=== PATIENT | female | born 1960 | race Caucasian/White ===

== ENCOUNTER 2017-11-26 08:39 | Inpatient (IN) | payer MEDICARE ==
[2017-11-26 09:30] LABS: Hematocrit 41 % (35-47); Hemoglobin 14.6 g/dl (12.0-16.0); Mean Corpuscular HGB Conc 36 g/dl (31-36); Mean Corpuscular Hemoglobin 40 pg (27-31); Mean Corpuscular Volume 113 fL (80-97); Platelet Count 61 10^3/ul (150-450); Red Blood Count 3.65 10^6/ul (4.00-5.40); Red Cell Distribution Width 14 % (10.5-15); White Blood Count 6.3 10^3/ul (3.5-10.8)
--- NOTE | 2017-11-26 09:37 | RAD ---
Indication: Syncope, palpitations, high blood pressure. Comparison: July 24, 1999 Technique: Upright AP 0920 hours Report: Elevated lung volumes. Mild rarefaction of upper lung zone interstitial markings. No focal pulmonary lesion, pleural effusion, pneumothorax. Negative for cardiomegaly. Prominence of the upper lung zone pulmonary arteries increased over the previous exam consistent with cephalization. IMPRESSION: #. Cephalization favoring mild pulmonary vascular congestion. #. Stigmata of chronic obstructive pulmonary disease.
[2017-11-26 09:50] LABS: ABS Basophils 0 10^3/ul (0-0.2); ABS Eosinophils 0 10^3/ul (0-0.6); ABS Lymphocytes 1.4 10^3/ul (1.0-4.8); ABS Monocytes 0.8 10^3/ul (0-0.8); ABS Neutrophils 4.2 10^3/ul (1.5-7.7); ABS Nucleated RBC 0 10^3/ul; Eosinophil % 0.2 % (0-6); Lymphocyte % 21.3 % (25-47); Nucleated Red Blood Cells % 0.2
[2017-11-26 09:51] LABS: EGFR Non-African American 60.1 (>60)
--- NOTE | 2017-11-26 10:47 | RAD ---
INDICATION: Vertigo COMPARISON: MRI brain February 01, 2013 TECHNIQUE: Noncontrast axial source images were acquired from the skull base to the vertex. FINDINGS: Ventricles/sulci: There is cortical atrophy with compensatory dilatation of the CSF spaces. Brain parenchyma: There is no acute focal parenchymal finding, evidence of intracranial mass, or intracranial mass effect. There are patchy areas of decreased attenuation in periventricular and subcortical locations bilaterally consistent with chronic microvascular ischemia. Intracranial hemorrhage:None. Extra-axial spaces: There are no abnormal extra axial fluid collections or evidence of extra-axial mass. Calvarium: There is no calvarial fracture or other calvarial abnormality. Scalp: There is no evidence of scalp or extracalvarial soft tissue abnormality. Paranasal sinuses/mastoid: The paranasal sinuses and mastoid air cells are clear. Other: None. IMPRESSION: Cortical atrophy with chronic microvascular ischemic change
[2017-11-26] MEDS: KCL 20 MEQ/100 ML IVPREMIX* 20 MEQ/100 ML BAG IV SCH ×4 (10:54→20:55)
[2017-11-26] MEDS ORDERED: NS 0.9% 1000 ML* 1,000 ML IV ONE (11:30)
[2017-11-26] MEDS ORDERED: Ondansetron INJ* 2 MG/ML VIAL IV PRN (11:31)
[2017-11-26] MEDS ORDERED: Albuterol 2.5 MG/3 ML NEB.SOL* (0.083%) INH SCH (12:00)
[2017-11-26] MEDS: Albuterol 2.5 MG/3 ML NEB.SOL* (0.083%) INH SCH ×3 (13:40→19:47)
[2017-11-26] MEDS ORDERED: NS 0.9% 1000 ML* 2,000 ML IV ONE (14:10)
[2017-11-26] MEDS: Nicotine PATCH 14 MG/24 HR* PATCH TRANSDERM SCH (14:46)
--- NOTE | 2017-11-26 15:49 | CONS ---
CC: Dr. Valle GASTROENTEROLOGY CONSULTATION DATE OF CONSULTATION: 11/26/2017. REQUESTING PHYSICIAN: Dr. Clifton. REASON FOR CONSULT: Increased LFT's. HISTORY OF PRESENT ILLNESS: Ms. Rodgers is a 57-year-old female who used to be a patient of Dr. Metcalf . He had treated her for hepatitis C back in 2014 successfully with Jose. She now is admitted fr om the emergency room after experiencing syncope. In the emergency room, blood work revealed increas ed liver function test. The patient states that she does drink alcohol on an every other day basis, between two and five beers per day. She additionally had at least half a bottle of jagermeister on . It was an approximate 750 ml bottle. She denies any for alcoholism. She denies an y new medications, other than a muscle relaxer prescribed by her MS doctor. She denies any possibili ty of reinfection with hepatitis C. she denies any recent IV drug use. She has noted that the white s of her eyes have become yellow over the past few days. Some nausea, no vomiting. She denies any T ylenol use. She does have a known history of gallstones. PAST MEDICAL HISTORY: Please see the HPI. PAST SURGICAL HISTORY: None. ALLERGIES: AMBIEN, COPAXONE, CELEXA, ERYTHROMYCIN, AND PENICILLIN. FAMILY HISTORY: Noncontributory. REVIEW OF SYSTEMS: Twelve systems were reviewed. Other than that mentioned in the HPI were unremark able. PHYSICAL EXAM: General: Chronically ill-appearing female in no apparent distress. Alert, oriented, pleasant, and fluent. Vital Signs: Temperature 99.7, blood pressure 137/74, pulse 123. HEENT: Muc us membranes are moist without lesions, ulcers, or exudate. She does have scleral icterus. She had spider angiomata on her face. Heart: Regular rate and rhythm, tachy. Lungs: Clear to auscultation. Abdomen: Obese, positive bowel sounds. Soft, nontender, nondistended. No hepatosplenomegaly, mass es, rebound, or guarding. Skin: Warm and dry. Neuro: No asterixis. DIAGNOSTIC STUDIES/LAB DATA: Of note, white count of 6.3, hemoglobin is 14.6, platelets of 61; sodiu m is 130, potassium is 2.8, BUN 9, creatinine 0.96, bili is 9.68, AST is 133, ALT is 81, alk phos 172 , albumin 3.5. No PT or INR was obtained. ASSESSMENT AND PLAN: This is a 57-year-old female admitted with syncope who was found to have an inc reased liver function test. She has a history of hepatitis C treated successfully three years ago. Possible causes for her increased liver function test would be gallstones. She does have a known his tory of gallstones. We should check a right upper quadrant ultrasound. This initially could be alcoh olic hepatitis, unfortunately no PT was checked. We need the PT and the bilirubin in order to determ ine the patient's Maddrey score. If greater than 32 then we can start steroids. This could be reinf ection of hepatitis C, less likely hepatitis B. We will check hepatitis C quant and hep B surface an tigen. I doubt ischemia, could be autoimmune hepatitis. I doubt Tylenol, but will continue to k[place] along very closely. [id number]/[facility] #: [id number]
[2017-11-26 15:53] LABS: INR 1.43 (0.77-1.02)
--- NOTE | 2017-11-26 16:00 | RAD ---
INDICATION: Hyperbilirubinemia COMPARISON: Hepatic sonogram September 28, 2011 TECHNIQUE: Longitudinal and transverse scans of the right upper quadrant were obtained. Doppler interrogation of the hepatic and portal venous system was performed. FINDINGS: Liver: The liver is top normal in size and mildly echogenic. There is mild heterogeneity in echotexture suggesting hepatic parenchymal disease.. The liver measures 18 cm in cephalocaudal dimension. Vessels: There is normal hepatic and portal venous flow. Bile ducts: There is no evidence of intrahepatic or extrahepatic ductal dilatation. The common duct measures 0.7 cm. Gallbladder: There are multiple gallstones. The gallbladder is partially contracted as the patient was not n.p.o. This may account for mild gallbladder wall prominence. Pancreas: The visualized pancreas appears normal Right kidney: The right kidney is normal in size and echogenicity. There are no masses or calculi. There is no evidence of hydronephrosis. The right kidney measures 11.3 x 3.6 x 4.9 cm. IVC and aorta: The aorta and superior vena cava appear normal. Fluid: There is no ascites. Other: None. IMPRESSION: MILDLY HETEROGENEOUS LIVER SUGGESTS HEPATIC PARENCHYMAL DISEASE. CHOLELITHIASIS.
[2017-11-26] MEDS ORDERED: Omeprazole CAP* 20 MG PO ONE (16:32)
[2017-11-26] MEDS ORDERED: PREDNISOLONE 5 MG PO SCH (17:00)
[2017-11-26] MEDS: PREDNISOLONE PO SCH (17:43)
[2017-11-26] MEDS ORDERED: Pneumococcal *Vac Polyvalent 0.5 ML VIAL IM ONE (18:00)
[2017-11-26] MEDS: tiZANidine TAB* 2 MG PO PRN (18:29)
[2017-11-26] MEDS: Morphine ORAL.SOLN 10 mg* 2 MG/ML UDC 5 ml PO PRN (19:50)
--- NOTE | 2017-11-26 22:48 | HP ---
CC: Dr. Valle; Dr. Ronnie Olmedo HISTORY AND PHYSICAL: DATE OF ADMISSION: 11/26/17 TIME OF MY EVALUATION: 4 p.m. PRIMARY CARE PROVIDER: Dr. Jordon Valle, [facility]. CONSULTING CABLE TESTERS HELPER: Dr. Ronnie Olmedo. CHIEF COMPLAINT: Syncopal episode/abnormal LFTs/profound weakness. HISTORY OF PRESENT ILLNESS: Ms. Rodgers is an unfortunate 57-year-old female who has a history of hepatitis C for which she was treated with Harvoni back in 2014 (successfully) as well as a history of multiple sclerosis, generally under control, who is admitted after a syncopal episode. The patient came to the emergency room and espoused several days of poor oral intake and generally feeling unwell. She attributes this to her multiple sclerosis, which seems to flare when it is warm outside/. Indeed, it was very hot over the past few days-- well into the 90s--and her home is not air conditioned. The patient also drank substantial amounts of alcohol on 11/24/17, two days prior to this admission. Specifically, she drank a large bottle of Jagermeister as well as several shots of other types of alcohol. The patient does take a muscle relaxant in addition to her medications, which will be detailed below. She denies any injection drug use. She has not had a recent history of fever or respiratory infections. She does espouse dizziness and nausea and vomiting over the past few days. She also describes "seizure-like activity." She does not have a history of seizure disorder and this was more consistent with syncope associated convulsions rather than true epilepsy and this was discussed with the patient. PAST MEDICAL HISTORY: 1. Multiple sclerosis. 2. Hepatitis C, status post Harvoni treatments and resolution. 3. No stated history of cirrhosis. 4. COPD. 5. Hypertension. 6. Question of alcoholism. ALLERGIES: Includes DULOXETINE, ERYTHROMYCIN, COPOLYMER 1 (GLATIRAMER), and PENICILLINS. FAMILY HISTORY: Noncontributory. SOCIAL HISTORY: The patient is not currently working. She is accompanied by her . She is a nonsmoker. She does drink alcohol as per the HPI. Her is her surrogate decision maker. His name is Reji Rodgers. He could be reached at [phone]. The patient is a full code. REVIEW OF SYSTEMS: A review of 14 systems was undertaken with the patient at the bedside in the emergency room. This was largely negative except for the pertinent positives as mentioned above in the HPI and past medical history. She added palpitations to her symptomatology and indeed her heart rate was in the low to mid 100s. PHYSICAL EXAMINATION On admission: GENERAL: A middle-aged woman appears perhaps older than stated age. No acute distress. VITAL SIGNS: Temperature 98 degrees Fahrenheit, blood pressure 130s to 150s over 70s to 90s, respirations 18 to 20 and unlabored, oxygen saturation 96% on room air. HEENT: Oropharynx is clear. Mucous membranes are moist. She does have obvious jaundice and scleral and sublingual icterus. NECK: Supple. No lymphadenopathy. No elevated JVD. CHEST: Clear breath sounds anteriorly and posteriorly. No focal rales, rhonchi , or wheezing. HEART: Tachycardic, but no murmurs appreciated. ABDOMEN: Tender in the right upper quadrant, but not exquisitely so. No other masses or rebounding. No fluid wave in her abdomen. EXTREMITIES: Without clubbing, cyanosis, or edema. ADMISSION DATA: White blood cell count 6.3, hemoglobin 14.6, platelets 61. INR 1.43 with a PT stated at 17.7. The PTT range is 9.4 to 12.5. Blood gas showed a VBG, pH of 7.49, pO2 of 33 (venous, disregard), and CO2 of 43. Blood chemistry significant for sodium 130, potassium 2.8, chloride 88, bicarb 29, anion gap 13, BUN 9, creatinine 0.96 with recent values in 2013 and 2014 at 0.57 and 0.62, glucose 112. Lactic acid 2.4 (likely chronically elevated). Magnesium 1.6 (low). Total bilirubin 9.6, AST and ALT are 133 and 81, respectively, alk phos 172. Ammonia 52. Troponin 0.05. BNP elevated at 429. Albumin and globulin are 3.5 and 4.3, respectively. TSH 1.88 with free T4 at 1.21 (high, upper limit of normal is 1.11). Serum alcohol is less than 10. Other toxicology studies were not done. Serologies ordered by Gastroenterology includes a HCV RNA genotype as well as a hepatitis B surface antigen as well as an KEVIN. These are pending. Studies in the emergency room included a brain CT, which showed only cortical atrophy, but no acute intracranial process. A chest x-ray that showed no pulmonary parenchymal process. An EKG that showed sinus tachycardia, but no indication of acute ischemia. IMPRESSION AND PLAN: Ms. Rodgers is a 57-year-old woman with a history of multiple sclerosis, hep C, treated with Harvoni back in 2014, and COPD, now with a syncopal episode and abnormal LFTs. The pattern of liver failure is cholestatic. A gallbladder ultrasound was done early in this admission before this dictation and that showed no obstructive symptoms, no gallbladder or common bile duct dilatation, but did show a cholelithiasis, but there is no other abnormality noted. The patient has a notable history of alcohol intake that is binge level. She also was taking in less fluids and food than normal, and this is attributable to her feeling poorly during heat waves secondary to her multiple sclerosis. I am concerned this represents alcoholic hepatitis. I asked the laboratory for a PT result and they indicated it was 17.7. Given the range of normal is 9.4 to 12.5, if I take the most conservative view that normal PT is 12.5, that means the discriminant factor score is 33.5 justifying the prescription of steroids. Specifically, the customary dose of glucocorticoids is 40 mg of prednisone or prednisolone and I will employ the latter. Concurrently, the patient will be aggressively hydrated. Her lactic acid was elevated. I think this is secondary to liver dysfunction. I do not appreciate the degree of chronic liver dysfunction, but any liver dysfunction can lead to a difficulty clearing even normal lactic acid levels. Moreover, her creatinine was higher than normal. She does not have much muscle mass, so it would be easy to overlook her creatinine of 0.96 as normal, but indeed her GFR is not normal. She has an array of electrolyte abnormalities including hypokalemia, hypochloridemia, and hypomagnesemia, all of which will be addressed with normal saline repletion as well as magnesium and potassium repletion. The patient will continue to receive supportive care during the hospitalization. Labs will be rechecked tomorrow. We will trend her LFT's score over time. My inclination is that this is secondary to alcohol toxicity on top of a chronically injured and vulnerable liver parenchyma. I note Dr. Olmedo has asked for hep C and hep B serologies to be sent, and this is certainly reasonable. His consultation is appreciated. TIME SPENT: Total time taken to admit Ms. Rodgers was 75 minutes, greater than half that time spent at the bedside going over the history and physical examination face- to-face with the patient. I explained the hospital plan of care for which she was in agreement. [id number]/[facility] #: [id number] MTDD
[2017-11-27] MEDS: Albuterol 2.5 MG/3 ML NEB.SOL* (0.083%) INH SCH ×5 (00:23→20:26)
[2017-11-27] MEDS ORDERED: KCL 20 MEQ/100 ML IVPREMIX* 20 MEQ/100 ML BAG ONE (00:49)
[2017-11-27] MEDS: KCL 20 MEQ/100 ML IVPREMIX* 20 MEQ/100 ML BAG IV SCH (00:51)
[2017-11-27] MEDS: Morphine ORAL.SOLN 10 mg* 2 MG/ML UDC 5 ml PO PRN ×3 (02:40→19:33)
[2017-11-27] MEDS ORDERED: NS 0.9% 1000 ML* 1,000 ML IV SCH (03:00)
[2017-11-27] MEDS: Omeprazole CAP* 20 MG PO SCH (05:57)
[2017-11-27] MEDS: Nicotine Patch Removal NOTE FOLLOW UP SCH (06:04)
[2017-11-27] MEDS: Nicotine PATCH 14 MG/24 HR* PATCH TRANSDERM SCH (08:30)
[2017-11-27] MEDS: Hydrochlorothiazide TAB* 25 MG PO SCH (08:31)
[2017-11-27] MEDS: PREDNISOLONE PO SCH (08:34)
[2017-11-27] MEDS: tiZANidine TAB* 2 MG PO PRN ×2 (09:29→19:33)
[2017-11-27 09:44] LABS: ABS Basophils 0 10^3/ul (0-0.2); ABS Eosinophils 0 10^3/ul (0-0.6); ABS Lymphocytes 1.1 10^3/ul (1.0-4.8); ABS Monocytes 0.7 10^3/ul (0-0.8); ABS Neutrophils 5.5 10^3/ul (1.5-7.7); ABS Nucleated RBC 0 10^3/ul; Eosinophil % 0.1 % (0-6); Hematocrit 35 % (35-47); Hemoglobin 12.1 g/dl (12.0-16.0); Lymphocyte % 15.4 % (25-47); Mean Corpuscular HGB Conc 35 g/dl (31-36); Mean Corpuscular Hemoglobin 40 pg (27-31); Mean Corpuscular Volume 115 fL (80-97); Mean Platelet Volume 9.8 um3 (7.4-10.4); Nucleated Red Blood Cells % 0.2; Platelet Count 51 10^3/ul (150-450); Red Blood Count 3.01 10^6/ul (4.00-5.40); Red Cell Distribution Width 14 % (10.5-15); White Blood Count 7.4 10^3/ul (3.5-10.8)
[2017-11-27 09:54] LABS: EGFR Non-African American 89.5 (>60)
[2017-11-27] MEDS ORDERED: Potassium Phosphate IV* 15 MMOLE in NS 0.9% 250 ML* 250 ML IVPB ONE (11:21)
[2017-11-27] MEDS ORDERED: Magnesium Sulf 4 GM/100 ML IV* 4,000 MG/100 ML BAG IVPB ONE (11:22)
[2017-11-27] MEDS ORDERED: NS 0.9% 1000 ML* 2,000 ML IV ONE (13:30)
[2017-11-27] MEDS ORDERED: Nystatin SUSPENSION* 100000 UNITS/ML 5 ML UDC PO ONE (13:33)
[2017-11-27] MEDS ORDERED: LORazepam INJ* 2 MG/ML 1 ML VIAL IV PUSH SCH (14:00)
[2017-11-27] MEDS: Multivitamins/Minerals TAB PO SCH (14:10)
[2017-11-27] MEDS: Folic Acid TAB* 1 MG PO SCH (14:10)
[2017-11-27] MEDS: Thiamine TAB* 100 MG TAB PO SCH (14:11)
[2017-11-27] MEDS: Potassium Chloride LIQUID* 20 MEQ PACKET PO SCH (14:11)
--- NOTE | 2017-11-27 15:24 | PN ---
Subjective Date of Service: 11/27/17 Interval History: . long discussion with patient. reviewed decrease in bilirubin, but also other electrolyte abnormalities patient receiving other infusions (potassium, magnesium, phos) 2L NS bolus for continued dehydration -- will watch Urine output. Patient confirms ongoing alcohol use of a more chronic nature than originally thought --> [facility] protocol initiated with Ativan prophylaxis. NYSTATIN for possible thrush. . Family History: Unchanged from Admission Social History: Unchanged from Admission Past Medical History: Unchanged from Admission Objective Active Medications: . Albuterol (Ventolin 2.5 Mg/3 Ml Neb.Elena*) 2.5 mg INH Q6H [facility]ETH Last Admin: 11/27/17 13:20 Dose: Not Given Folic Acid (Folvite Tab*) 1 mg PO DAILY [facility] Last Admin: 11/27/17 14:10 Dose: 1 mg Hydrochlorothiazide (Hydrodiuril Tab*) 25 mg PO DAILY [facility]ABETH Last Admin: 11/27/17 08:31 Dose: 25 mg Sodium Chloride (Ns 0.9% 1000 Ml*) 2,000 mls @ 1,000 mls/hr IV .PER RATE ONE Stop: 11/27/17 15:29 Lorazepam (Ativan Inj*) 0 - 6 mg IV PUSH .PER [facility] PROTOCOL ELIZABETH; Protocol Lorazepam (Ativan Inj*) 1 mg IV Q8H ELIZABETH; Taper Stop: 11/30/17 09:59 Morphine Sulfate (Morphine Oral.Soln 10 Mg*) 15 mg PO Q6H PRN PRN Reason: PAIN Last Admin: 11/27/17 09:19 Dose: 15 mg Multivitamins/Minerals (Theragran/Minerals Tab*) 1 tab PO DAILY [facility]ETH Last Admin: 11/27/17 14:10 Dose: 1 tab Nicotine (Nicotine Patch 14 Mg/24 Hr*) 1 patch TRANSDERM DAILY [facility] Last Admin: 11/27/17 08:30 Dose: 1 patch Omeprazole (Prilosec Cap*) 40 mg PO DAILY@0600 [facility] Last Admin: 11/27/17 05:57 Dose: 40 mg Ondansetron HCl (Zofran Inj*) 4 mg IV Q4H PRN PRN Reason: NAUSEA Pharmacy Profile Note (Nicotine Patch Removal Note*) 1 note FOLLOW UP 0600 [facility] Last Admin: 11/27/17 06:04 Dose: 1 note Potassium Chloride (Klor-Con Liquid*) 40 meq PO DAILY [facility] Last Admin: 11/27/17 14:11 Dose: 40 meq Prednisolone Sodium Phosphate (Prednisolone Liq 3 Mg/Ml 5 Ml Udc*) 40 mg PO DAILY [facility]; Protocol Last Admin: 11/27/17 08:34 Dose: 40 mg Thiamine HCl (Vitamin B-1 Tab*) 100 mg PO DAILY [facility] Last Admin: 11/27/17 14:11 Dose: 100 mg Tizanidine HCl (Zanaflex Tab*) 2 mg PO Q6H PRN PRN Reason: SPASMS - MUSCLE Last Admin: 11/27/17 09:29 Dose: 2 mg . Vital Signs - 8 hr 11/27/17 11/27/17 11/27/17 07:26 08:00 08:03 Temperature 98.6 F Pulse Rate 83 78 Respiratory 14 18 18 Rate Blood Pressure 118/78 (mmHg) O2 Sat by Pulse 99 99 Oximetry 11/27/17 11/27/17 11/27/17 09:19 11:02 11:20 Temperature 97.8 F Pulse Rate 76 Respiratory 20 14 20 Rate Blood Pressure 132/75 (mmHg) O2 Sat by Pulse 99 Oximetry Oxygen Devices in Use Now: None Appearance: uncomfortable, agitated at times. Eyes: No Scleral Icterus Ears/Nose/Mouth/Throat: Clear Oropharnyx - but dry. Neck: NL Appearance and Movements; NL JVP Respiratory: Symmetrical Chest Expansion and Respiratory Effort Cardiovascular: NL Sounds; No Murmurs; No JVD Abdominal: NL Sounds; No Tenderness; No Distention Lymphatic: No Cervical Adenopathy Extremities: No Edema Skin: No Rash or Ulcers Neurological: Alert and Oriented x 3 Lines/Tubes/Other Access: Clean, Dry and Intact Peripheral IV Nutrition: Taking PO's Result Diagrams: 11/27/17 09:29 11/27/17 09:29 Assess/Plan/Problems-Billing . Assessment: 57 yo female with alcoholic hepatitis. Started on prednisolone for elevated bilirubin and elevated PT. Steroids have a dual benefit if there is any component of an MS-exacerbation. Multiple electrolyte derangements. [facility] protocol ordered for likely etoh-withdrawal. Regular diet as patient tolerates Continue aggressive re-hydration. - Patient Problems (1) Alcoholic hepatitis without ascites Current Visit: Yes Status: Acute Priority: High Code(s): K70.10 - ALCOHOLIC HEPATITIS WITHOUT ASCITES Comment: - continue prednisolone 40 mg PO daily x one month, and then outpatient taper. - absolute etoh abstinence - consult for outpatient resources (2) Multiple sclerosis Current Visit: Yes Status: Chronic Priority: High Code(s): G35 - MULTIPLE SCLEROSIS Comment: - potential exacerbation given recent heat wave and heat as a predisposing factor for her exacerbations. (3) Dehydration Current Visit: Yes Status: Acute Priority: High Code(s): E86.0 - DEHYDRATION Comment: - NS x 2 L (11/27/17) - follow urine output (4) Alcoholism /alcohol abuse Current Visit: Yes Status: Acute Priority: High Code(s): F10.20 - ALCOHOL DEPENDENCE, UNCOMPLICATED Comment: - root cause of current problem (5) Hypokalemia Current Visit: Yes Status: Acute Priority: High Code(s): E87.6 - HYPOKALEMIA Comment: - replete and recheck (6) Hypophosphatemia Current Visit: Yes Status: Acute Priority: High Code(s): E83.39 - OTHER DISORDERS OF PHOSPHORUS METABOLISM Comment: - replete and recheck (7) Hypomagnesemia Current Visit: Yes Status: Acute Code(s): E83.42 - HYPOMAGNESEMIA SNOMED Code(s): 858526123 (8) Depression Current Visit: No Status: Chronic Priority: High Code(s): F32.9 - MAJOR DEPRESSIVE DISORDER, SINGLE EPISODE, UNSPECIFIED Comment: - continue outpatient regimen (cymbalta).
[2017-11-27] MEDS: LORazepam INJ* 2 MG/ML 1 ML VIAL IV SCH ×2 (15:33→21:41)
[2017-11-27] MEDS ORDERED: Mouth Piece, Nicotine* 1 EACH CARTRIDGE INH SCH (23:58)
[2017-11-27] MEDS ORDERED: Nicotine Inhaler* 10 MG AMP INH PRN (23:58)
[2017-11-28] MEDS: Albuterol 2.5 MG/3 ML NEB.SOL* (0.083%) INH SCH ×2 (01:52→07:17)
[2017-11-28] MEDS: Omeprazole CAP* 20 MG PO SCH (06:35)
[2017-11-28] MEDS: LORazepam INJ* 2 MG/ML 1 ML VIAL IV SCH (06:36)
[2017-11-28] MEDS: Nicotine Patch Removal NOTE FOLLOW UP SCH (06:38)
[2017-11-28] MEDS: Hydrochlorothiazide TAB* 25 MG PO SCH (08:27)
[2017-11-28] MEDS: Folic Acid TAB* 1 MG PO SCH (08:27)
[2017-11-28] MEDS: Multivitamins/Minerals TAB PO SCH (08:27)
[2017-11-28] MEDS: Thiamine TAB* 100 MG TAB PO SCH (08:27)
[2017-11-28] MEDS: Potassium Chloride LIQUID* 20 MEQ PACKET PO SCH (08:28)
[2017-11-28] MEDS: Nicotine PATCH 14 MG/24 HR* PATCH TRANSDERM SCH (08:28)
--- NOTE | 2017-11-28 09:51 | PN ---
Subjective Date of Service: 11/28/17 Interval History: . now scoring consistently on [place] protocol and receiving ativan. we discussed she would not be going home today; she agrees. denies CP/SOB labs pending -- but referenced lower T-bili yesterday. she continues on steroids eating acceptably. continuing to watch closely. . Family History: Unchanged from Admission Social History: Unchanged from Admission Past Medical History: Unchanged from Admission Objective Active Medications: . Albuterol (Ventolin 2.5 Mg/3 Ml Neb.Elena*) 2.5 mg INH Q6H [facility] Last Admin: 11/28/17 07:17 Dose: 2.5 mg Device (Nicotine Mouth Piece*) 1 each INH .CARTRIDGE [facility] Folic Acid (Folvite Tab*) 1 mg PO DAILY [facility] Last Admin: 11/28/17 08:27 Dose: 1 mg Hydrochlorothiazide (Hydrodiuril Tab*) 25 mg PO DAILY [facility] Last Admin: 11/28/17 08:27 Dose: 25 mg Lorazepam (Ativan Inj*) 0 - 6 mg IV PUSH .PER [facility] PROTOCOL [facility]; Protocol Last Admin: 11/28/17 08:50 Dose: 2 mg Lorazepam (Ativan Inj*) 1 mg IV Q12H [facility]; Taper Stop: 11/30/17 09:59 Last Admin: 11/28/17 06:36 Dose: 1 mg Morphine Sulfate (Morphine Oral.Soln 10 Mg*) 15 mg PO Q6H PRN PRN Reason: PAIN Last Admin: 11/27/17 19:33 Dose: 15 mg Multivitamins/Minerals (Theragran/Minerals Tab*) 1 tab PO DAILY [facility] Last Admin: 11/28/17 08:27 Dose: 1 tab Nicotine (Nicotine Patch 14 Mg/24 Hr*) 1 patch TRANSDERM DAILY [facility] Last Admin: 11/28/17 08:28 Dose: 1 patch Nicotine (Nicotine Inhaler*) 10 mg INH Q2H PRN PRN Reason: CRAVING Omeprazole (Prilosec Cap*) 40 mg PO DAILY@0600 [facility] Last Admin: 11/28/17 06:35 Dose: 40 mg Ondansetron HCl (Zofran Inj*) 4 mg IV Q4H PRN PRN Reason: NAUSEA Pharmacy Profile Note (Nicotine Patch Removal Note*) 1 note FOLLOW UP 0600 [facility] Last Admin: 11/28/17 06:38 Dose: 1 note Potassium Chloride (Klor-Con Liquid*) 40 meq PO DAILY [facility] Last Admin: 11/28/17 08:28 Dose: 40 meq Prednisolone Sodium Phosphate (Prednisolone Liq 3 Mg/Ml 5 Ml Udc*) 40 mg PO DAILY [facility]; Protocol Last Admin: 11/27/17 08:34 Dose: 40 mg Thiamine HCl (Vitamin B-1 Tab*) 100 mg PO DAILY [facility] Last Admin: 11/28/17 08:27 Dose: 100 mg Tizanidine HCl (Zanaflex Tab*) 2 mg PO Q6H PRN PRN Reason: SPASMS - MUSCLE Last Admin: 11/27/17 19:33 Dose: 2 mg . Vital Signs - 8 hr 11/28/17 11/28/17 11/28/17 01:53 02:29 04:16 Temperature 97.4 F Pulse Rate 75 100 96 Respiratory 16 20 18 Rate Blood Pressure 138/71 136/70 (mmHg) O2 Sat by Pulse 93 99 100 Oximetry 11/28/17 11/28/17 11/28/17 06:36 07:19 08:25 Temperature 98.6 F Pulse Rate 81 93 Respiratory 18 14 14 Rate Blood Pressure 105/58 (mmHg) O2 Sat by Pulse 100 98 Oximetry Oxygen Devices in Use Now: None Appearance: Active etoh withdrawal...tremulous, sweaty, confused. Eyes: No Scleral Icterus Ears/Nose/Mouth/Throat: Clear Oropharnyx Neck: NL Appearance and Movements; NL JVP Respiratory: Symmetrical Chest Expansion and Respiratory Effort Cardiovascular: NL Sounds; No Murmurs; No JVD Abdominal: - - + RUQ tenderness, as previously. Lymphatic: No Cervical Adenopathy Extremities: No Edema Skin: No Rash or Ulcers Neurological: - - confused, tremulous -- scoring on [facility] protocol Lines/Tubes/Other Access: Clean, Dry and Intact Peripheral IV Nutrition: Taking PO's Result Diagrams: 11/28/17 10:05 11/28/17 10:05 Assess/Plan/Problems-Billing . Assessment: 57 yo female with alcoholic hepatitis. Started on prednisolone for elevated bilirubin and elevated PT. Steroids have a dual benefit if there is any component of an MS-exacerbation. Multiple electrolyte derangements...repleting and rechecking. [facility] protocol ordered for active etoh-withdrawal. Regular diet as patient tolerates Continue aggressive re-hydration. - Patient Problems (1) Alcoholic hepatitis without ascites Current Visit: Yes Status: Acute Priority: High Code(s): K70.10 - ALCOHOLIC HEPATITIS WITHOUT ASCITES Comment: - continue prednisolone 40 mg PO daily x one month, and then outpatient taper. - absolute etoh abstinence - SW consult for outpatient resources (2) Multiple sclerosis Current Visit: Yes Status: Chronic Priority: High Code(s): G35 - MULTIPLE SCLEROSIS Comment: - potential exacerbation given recent heat wave and heat as a predisposing factor for her exacerbations. - steroids will be beneficial if MS contributing to her presentation. (3) Dehydration Current Visit: Yes Status: Acute Priority: High Code(s): E86.0 - DEHYDRATION Comment: - NS x 2 L (11/27/17) - follow urine output (4) Alcoholism /alcohol abuse Current Visit: Yes Status: Acute Priority: High Code(s): F10.20 - ALCOHOL DEPENDENCE, UNCOMPLICATED Comment: - root cause of current problem (5) Hypokalemia Current Visit: Yes Status: Acute Priority: High Code(s): E87.6 - HYPOKALEMIA Comment: - replete and recheck (6) Hypophosphatemia Current Visit: Yes Status: Acute Priority: High Code(s): E83.39 - OTHER DISORDERS OF PHOSPHORUS METABOLISM Comment: - replete and recheck (7) Hypomagnesemia Current Visit: Yes Status: Acute Priority: High Code(s): E83.42 - HYPOMAGNESEMIA Comment: - replete and recheck. (8) Depression Current Visit: No Status: Chronic Priority: High Code(s): F32.9 - MAJOR DEPRESSIVE DISORDER, SINGLE EPISODE, UNSPECIFIED Comment: - continue outpatient regimen (cymbalta).
[2017-11-28] MEDS: PREDNISOLONE PO SCH (09:55)
[2017-11-28 10:19] LABS: ABS Basophils 0.1 10^3/ul (0-0.2); ABS Eosinophils 0.1 10^3/ul (0-0.6); ABS Lymphocytes 3.3 10^3/ul (1.0-4.8); ABS Monocytes 0.7 10^3/ul (0-0.8); ABS Neutrophils 7.8 10^3/ul (1.5-7.7); ABS Nucleated RBC 0 10^3/ul; Eosinophil % 0.5 % (0-6); Hematocrit 34 % (35-47); Hemoglobin 11.9 g/dl (12.0-16.0); Lymphocyte % 27.4 % (25-47); Mean Corpuscular HGB Conc 35 g/dl (31-36); Mean Corpuscular Hemoglobin 40 pg (27-31); Mean Corpuscular Volume 115 fL (80-97); Mean Platelet Volume 10.2 um3 (7.4-10.4); Nucleated Red Blood Cells % 0.1; Platelet Count 57 10^3/ul (150-450); Red Blood Count 2.99 10^6/ul (4.00-5.40); Red Cell Distribution Width 15 % (10.5-15)
[2017-11-28] MEDS ORDERED: Albuterol HFA INHALER* 8 gm MDI INH PRN (11:09)
[2017-11-28] MEDS ORDERED: Potassium Chlor TAB* 20 MEQ TAB.ER PO ONE (16:53)
[2017-11-28] MEDS ORDERED: Potassium Chloride LIQUID* 20 MEQ PACKET PO ONE (16:54)
[2017-11-28] MEDS ORDERED: Mouth Piece, Nicotine* 1 EACH CARTRIDGE ONE (18:22)
[2017-11-28] MEDS: Morphine ORAL.SOLN 10 mg* 2 MG/ML UDC 5 ml PO PRN (18:30)
[2017-11-28] MEDS: tiZANidine TAB* 2 MG PO PRN (20:19)
[2017-11-28] MEDS: LORazepam INJ* 2 MG/ML 1 ML VIAL IV PUSH SCH ×2 (20:20→22:00)
[2017-11-28] MEDS: Albuterol HFA INHALER* 8 gm MDI INH SCH (20:44)
[2017-11-29] MEDS: Morphine ORAL.SOLN 10 mg* 2 MG/ML UDC 5 ml PO PRN ×3 (00:38→17:25)
[2017-11-29] MEDS: LORazepam INJ* 2 MG/ML 1 ML VIAL IV PUSH SCH ×7 (03:57→22:15)
[2017-11-29] MEDS: Omeprazole CAP* 20 MG PO SCH (05:57)
[2017-11-29] MEDS: tiZANidine TAB* 2 MG PO PRN ×3 (05:57→20:20)
[2017-11-29] MEDS: Nicotine Patch Removal NOTE FOLLOW UP SCH (06:11)
[2017-11-29 06:40] LABS: EGFR Non-African American 109.7 (>60)
[2017-11-29] MEDS: Albuterol HFA INHALER* 8 gm MDI INH SCH ×2 (07:37→19:31)
[2017-11-29] MEDS: Potassium Chloride LIQUID* 20 MEQ PACKET PO SCH (08:43)
[2017-11-29] MEDS: PREDNISOLONE PO SCH (08:45)
[2017-11-29] MEDS: Hydrochlorothiazide TAB* 25 MG PO SCH (08:48)
[2017-11-29] MEDS: Multivitamins/Minerals TAB PO SCH (08:48)
[2017-11-29] MEDS: Thiamine TAB* 100 MG TAB PO SCH (08:48)
[2017-11-29] MEDS: Nicotine PATCH 14 MG/24 HR* PATCH TRANSDERM SCH (08:49)
[2017-11-29] MEDS: Folic Acid TAB* 1 MG PO SCH (08:49)
--- NOTE | 2017-11-29 17:11 | PN ---
Subjective Date of Service: 11/29/17 Interval History: . Doing a bit better... Very upset about being in the hospital. I asked her if she would likely drink EtOH again, and she thinks so. I told her I'm asking a SW to review community resources with her. also drinks EtOH -- thinks that she would like to quit also...I agreed this would be a good thing to do together. . Family History: Unchanged from Admission Social History: Unchanged from Admission Past Medical History: Unchanged from Admission Objective Active Medications: . Albuterol (Ventolin Hfa Inhaler*) 2 puff INH BID [facility] Last Admin: 11/29/17 07:37 Dose: 2 puff Albuterol (Ventolin Hfa Inhaler*) 2 puff INH Q4H PRN PRN Reason: SOB/WHEEZING Device (Nicotine Mouth Piece*) 1 each INH .CARTRIDGE [facility] Folic Acid (Folvite Tab*) 1 mg PO DAILY [facility] Last Admin: 11/29/17 08:49 Dose: 1 mg Hydrochlorothiazide (Hydrodiuril Tab*) 25 mg PO DAILY [facility] Last Admin: 11/29/17 08:48 Dose: 25 mg Lorazepam (Ativan Inj*) 0 - 6 mg IV PUSH .PER [facility] PROTOCOL [facility]; Protocol Last Admin: 11/29/17 15:28 Dose: 1 mg Morphine Sulfate (Morphine Oral.Soln 10 Mg*) 15 mg PO Q6H PRN PRN Reason: PAIN Last Admin: 11/29/17 09:01 Dose: 15 mg Multivitamins/Minerals (Theragran/Minerals Tab*) 1 tab PO DAILY [facility] Last Admin: 11/29/17 08:48 Dose: 1 tab Nicotine (Nicotine Patch 14 Mg/24 Hr*) 1 patch TRANSDERM DAILY [facility] Last Admin: 11/29/17 08:49 Dose: 1 patch Nicotine (Nicotine Inhaler*) 10 mg INH Q2H PRN PRN Reason: CRAVING Last Admin: 11/28/17 18:31 Dose: 10 mg Omeprazole (Prilosec Cap*) 40 mg PO DAILY@0600 [facility] Last Admin: 11/29/17 05:57 Dose: 40 mg Ondansetron HCl (Zofran Inj*) 4 mg IV Q4H PRN PRN Reason: NAUSEA Pharmacy Profile Note (Nicotine Patch Removal Note*) 1 note FOLLOW UP 0600 [facility] Last Admin: 11/29/17 06:11 Dose: 1 note Potassium Chloride (Klor-Con Liquid*) 40 meq PO DAILY [facility] Last Admin: 11/29/17 08:43 Dose: 40 meq Prednisolone Sodium Phosphate (Prednisolone Liq 3 Mg/Ml 5 Ml Udc*) 40 mg PO DAILY [facility]; Protocol Last Admin: 11/29/17 08:45 Dose: 40 mg Thiamine HCl (Vitamin B-1 Tab*) 100 mg PO DAILY [facility] Last Admin: 11/29/17 08:48 Dose: 100 mg Tizanidine HCl (Zanaflex Tab*) 2 mg PO Q6H PRN PRN Reason: SPASMS - MUSCLE Last Admin: 11/29/17 13:05 Dose: 2 mg . Vital Signs - 8 hr 11/29/17 11/29/17 11/29/17 10:21 11:49 12:18 Temperature 99.0 F 98.6 F Pulse Rate 91 104 Respiratory 14 14 14 Rate Blood Pressure 112/78 137/77 (mmHg) O2 Sat by Pulse 98 97 Oximetry 11/29/17 11/29/17 11/29/17 12:25 12:26 14:34 Temperature 98.9 F Pulse Rate 99 Respiratory 14 14 16 Rate Blood Pressure 147/80 (mmHg) O2 Sat by Pulse 98 Oximetry Oxygen Devices in Use Now: None Appearance: + etoh withdrawal ongoing. flat affect. Eyes: No Scleral Icterus Ears/Nose/Mouth/Throat: NL Teeth, Lips, Gums, Clear Oropharnyx Neck: NL Appearance and Movements; NL JVP Respiratory: Symmetrical Chest Expansion and Respiratory Effort Cardiovascular: NL Sounds; No Murmurs; No JVD Abdominal: NL Sounds; No Tenderness; No Distention Lymphatic: No Cervical Adenopathy Extremities: No Edema Skin: No Rash or Ulcers Neurological: Alert and Oriented x 3 Lines/Tubes/Other Access: Clean, Dry and Intact Peripheral IV Nutrition: Taking PO's Result Diagrams: 11/28/17 10:05 11/29/17 07:26 Assess/Plan/Problems-Billing . Assessment: 57 yo female with alcoholic hepatitis. Started on prednisolone for elevated bilirubin and elevated PT. Steroids have a dual benefit if there is any component of an MS-exacerbation. Multiple electrolyte derangements...repleting and rechecking. [facility] protocol ordered for active etoh-withdrawal. Regular diet as patient tolerates Continue aggressive re-hydration. - Patient Problems (1) Alcoholic hepatitis without ascites Current Visit: Yes Status: Acute Priority: High Code(s): K70.10 - ALCOHOLIC HEPATITIS WITHOUT ASCITES Comment: - continue prednisolone 40 mg PO daily x one month, and then outpatient taper. - absolute etoh abstinence - consult for outpatient resources (2) Multiple sclerosis Current Visit: Yes Status: Chronic Priority: High Code(s): G35 - MULTIPLE SCLEROSIS Comment: - potential exacerbation given recent heat wave and heat as a predisposing factor for her exacerbations. - steroids will be beneficial if MS contributing to her presentation. (3) Dehydration Current Visit: Yes Status: Acute Priority: High Code(s): E86.0 - DEHYDRATION Comment: - NS x 2 L (11/27/17) - follow urine output (4) Alcoholism /alcohol abuse Current Visit: Yes Status: Acute Priority: High Code(s): F10.20 - ALCOHOL DEPENDENCE, UNCOMPLICATED Comment: - root cause of current problem (5) Hypokalemia Current Visit: Yes Status: Acute Priority: High Code(s): E87.6 - HYPOKALEMIA Comment: - replete and recheck (6) Hypophosphatemia Current Visit: Yes Status: Acute Priority: High Code(s): E83.39 - OTHER DISORDERS OF PHOSPHORUS METABOLISM Comment: - replete and recheck (7) Hypomagnesemia Current Visit: Yes Status: Acute Priority: High Code(s): E83.42 - HYPOMAGNESEMIA Comment: - replete and recheck. (8) Depression Current Visit: No Status: Chronic Priority: High Code(s): F32.9 - MAJOR DEPRESSIVE DISORDER, SINGLE EPISODE, UNSPECIFIED Comment: - continue outpatient regimen (cymbalta).
[2017-11-30] MEDS: tiZANidine TAB* 2 MG PO PRN ×2 (06:06→12:09)
[2017-11-30] MEDS: Omeprazole CAP* 20 MG PO SCH (06:07)
[2017-11-30] MEDS: Nicotine Patch Removal NOTE FOLLOW UP SCH (06:08)
--- NOTE | 2017-11-30 06:42 | ED ---
Gabriel Stewart Tiffany, scribed for Maurice Degroot MD on 11/26/17 at 1010 . Complex/Multi-Sys Presentation - HPI Summary HPI Summary: 57 year old F presenting to [facility] complains of weakness since two days ago. Symptoms aggravated by nothing. Symptoms alleviated by nothing. Patient reports dizziness, lightheadedness, ear ringing. Additionally c/o nausea/vomiting, decreased appetite and fluid intake. Denies fever, cough, diarrhea, urinary symptoms. Also reports that while lying down in bed, patient feels room spinning , followed by syncopal-type episodes from which she wakes up in seizure-like activity. No hx seizure. Additionally c/o headache after these seizure-like episodes. Hx COPD. Hx MS that is aggravated by hot weather. - History Of Current Complaint Chief Complaint: EDSyncope Time Seen by Provider: 11/26/17 08:54 Hx Obtained From: Patient Onset/Duration: Lasting Days - 2, Still Present Timing: Constant Aggravating Factor(s): Nothing Alleviating Factor(s): Nothing Associated Signs And Symptoms: Positive: Other - dizziness, lightheadedness, ear ringing, nausea/vomiting, decreased appetite and fluid intake. While lying down in bed, patient feels room spinning, followed by syncopal-type episodes from which she wakes up in seizure-like activity after which she reports headache; NEGATIVE: fever, cough, diarrhea, urinary symptoms - Allergies/Home Medications Allergies/Adverse Reactions: Allergies Allergy/AdvReac Type Severity Reaction Status Date / Time duloxetine [From Cymbalta] Allergy Shortness Verified 11/26/17 08:55 of Breath erythromycin base Allergy Hives/Diff. Verified 11/26/17 08:55 Breathing/I tching glatiramer (copolymer 1) Allergy Anaphylatic Verified 11/26/17 08:55 [From Copaxone] Shock Penicillins Allergy Hives/Diff. Verified 11/26/17 08:55 Breathing/I tching Home Medications: Home Medications Hydrochlorothiazide TAB* [Hydrodiuril TAB*] 25 mg PO DAILY 11/26/17 [History Confirmed 11/26/17] Morphine TAB (NF) 15 mg PO Q6H PRN 11/26/17 [History Confirmed 11/26/17] PMH/Surg Hx/FS Hx/Imm Hx Previously Healthy: No Endocrine/Hematology History: Denies: Hx Diabetes Cardiovascular History: Reports: Hx Hypertension Denies: Hx Pacemaker/ICD Respiratory History: Reports: Hx Asthma, Hx Chronic Obstructive Pulmonary Disease (COPD) History: Denies: Hx Dialysis, Hx Renal Disease Musculoskeletal History: Denies: Hx Scoliosis Sensory History: Denies: Hx Hearing Aid Neurological History: Reports: Other Neuro Impairments/Disorders - MS Denies: Hx Headaches Psychiatric History: Denies: Hx Panic Disorder - Surgical History Surgery Procedure, Year, and Place: left knee surgery,lsp surgery 2006, bilateral wrists; FERTILTY TREATMENT SURGERIES. 2015 BIOPSY ON LOWER BACK FOR INFECTION AND NEGATIVE FIND Infectious Disease History: Yes Infectious Disease History: Denies: Traveled Outside the [place] in Last 30 Days - Family History Known Family History: Negative: Blood Disorder - Social History Alcohol Use: Rare Hx Substance Use: No Substance Use Type: Reports: None Hx Tobacco Use: Yes Smoking Status (MU): Light Every Day Tobacco Smoker Review of Systems Negative: Fever, Chills Negative: Erythema Positive: Other - Ear ringing. Negative: Sore Throat Negative: Chest Pain Negative: Shortness Of Breath, Cough Positive: Vomiting, Nausea, Other - Decreased appetite and fluid intake. Negative: Abdominal Pain Negative: dysuria, hematuria Negative: Myalgia, Edema Negative: Rash Neurological: Other - Dizziness, lightheadedness. While lying down in bed, patient feels room spinning, followed by syncopal-type episodes from which she wakes up in seizure-like activity after which she reports headache Positive: Weakness All Other Systems Reviewed And Are Negative: Yes Physical Exam - Summary Physical Exam Summary: Constitutional: Well-developed, Well-nourished, Alert. (-) Distressed Skin: Warm, Dry HENT: Normocephalic; Atraumatic. Dry mucous membranes Eyes: Conjunctiva normal Neck: Musculoskeletal ROM normal neck. (-) JVD, (-) Stridor, (-) Tracheal deviation Cardio: Rhythm regular, tachycardic, Heart sounds normal; Intact distal pulses; The pedal pulses are 2+ and symmetric. Radial pulses are 2+ and symmetric. (-) Murmur Pulmonary/Chest wall: Effort normal. (-) Respiratory distress, slight expiratory wheezes, (-) Rales Abd: Soft, (-), epigastric tenderness, (-) Distension, (-) Guarding, (-) Rebound Musculoskeletal: (-) Edema Lymph: (-) Cervical adenopathy Neuro: Alert, Oriented x3 Psych: Mood and affect Normal Triage Information Reviewed: Yes Vital Signs On Initial Exam: Initial Vitals Temp Pulse Resp BP Pulse Ox 99.0 F 130 24 153/97 93 11/26/17 08:45 11/26/17 08:45 11/26/17 08:45 11/26/17 08:45 11/26/17 08:45 Vital Signs Reviewed: Yes Diagnostics - Vital Signs Vital Signs Temp Pulse Resp BP Pulse Ox 11/26/17 08:53 130 18 153/97 93 11/26/17 08:45 99.0 F 130 24 153/97 93 - Laboratory Lab Results: Lab Results 11/26/17 Range/Units 09:09 WBC 6.3 (3.5-10.8) 10^3/ul RBC 3.65 L (4.00-5.40) 10^6/ul Hgb 14.6 (12.0-16.0) g/dl Hct 41 (35-47) % MCV 113 H (80-97) fL MCH 40 H (27-31) pg MCHC 36 (31-36) g/dl RDW 14 (10.5-15) % Plt Count 61 L (150-450) 10^3/ul MPV 10.0 (7.4-10.4) um3 Neut % (Auto) Pending Lymph % (Auto) Pending Wood % (Auto) Pending Eos % (Auto) Pending Baso % (Auto) Pending Absolute Neuts (auto) Pending Absolute Lymphs (auto) Pending Absolute Monos (auto) Pending Absolute Eos (auto) Pending Absolute Basos (auto) Pending Absolute Nucleated RBC Pending Nucleated RBC % Pending Result Diagrams: 11/26/17 09:09 11/26/17 09:09 Lab Statement: Any lab studies that have been ordered have been reviewed, and results considered in the medical decision making process. - Radiology CXR Radiology Interpretation Completed By: Radiologist - 1. Cephalization favoring mild pulmonary vascular congestion. 2. Stigmata of chronic obstructive pulmonary disease. ED physician has reviewed this report. - CT Brain CT Interpretation Completed By: Radiologist - Cortical atrophy with chronic microvascular ischemic change. ED physician has reviewed this report. - EKG 08:48 Cardiac Rate: Tachycardia - 116 BPM EKG Rhythm: Sinus Tachycardia EKG Interpretation: Non-STEMI Complex Multi-Symp Course/Dx Course Of Treatment: 57 year old F presenting to [facility] complains of weakness since two days ago. Bloodwork/UA obtained. Patient hydrated with IV fluids. Admitted to Dr. Clifton, hospitalist. - Diagnoses Provider Diagnoses: Hepatic failure - Physician Notifications Discussed Care Of Patient With: Fernando Clifton Time Discussed With Above Provider: 10:45 Instructed by Provider To: Other - Dr. Clifton, hospitalist, agrees to admit patient. Discharge - Sign-Out/Discharge Documenting (check all that apply): Discharge/Admit/Transfer - Admit - Discharge Plan Condition: Stable Disposition: ADMITTED TO [facility] The documentation as recorded by the Gabriel watson Tiffany, SCRIBE accurately reflects the service I personally performed and the decisions made by Zane causey Jerry, MD.
[2017-11-30 07:43] LABS: INR 1.26 (0.77-1.02)
[2017-11-30 07:45] LABS: ABS Basophils 0.1 10^3/ul (0-0.2); ABS Eosinophils 0.1 10^3/ul (0-0.6); ABS Lymphocytes 3.5 10^3/ul (1.0-4.8); ABS Neutrophils 4.6 10^3/ul (1.5-7.7); ABS Nucleated RBC 0 10^3/ul; Eosinophil % 0.6 % (0-6); Hematocrit 34 % (35-47); Lymphocyte % 37.5 % (25-47); Mean Corpuscular HGB Conc 35 g/dl (31-36); Mean Corpuscular Hemoglobin 41 pg (27-31); Mean Corpuscular Volume 116 fL (80-97); Mean Platelet Volume 9.5 um3 (7.4-10.4); Nucleated Red Blood Cells % 0; Platelet Count 61 10^3/ul (150-450); Red Blood Count 2.93 10^6/ul (4.00-5.40); Red Cell Distribution Width 15 % (10.5-15); White Blood Count 9.3 10^3/ul (3.5-10.8)
[2017-11-30] MEDS ORDERED: Magnesium Sulf 4 GM/100 ML IV* 4,000 MG/100 ML BAG IVPB ONE (08:38)
[2017-11-30] MEDS: Albuterol HFA INHALER* 8 gm MDI INH SCH ×2 (09:29→20:39)
[2017-11-30] MEDS: Potassium Chloride LIQUID* 20 MEQ PACKET PO SCH (09:39)
[2017-11-30] MEDS: PREDNISOLONE PO SCH (09:42)
[2017-11-30] MEDS: Multivitamins/Minerals TAB PO SCH (09:45)
[2017-11-30] MEDS: Thiamine TAB* 100 MG TAB PO SCH (09:45)
[2017-11-30] MEDS: Folic Acid TAB* 1 MG PO SCH (09:45)
[2017-11-30] MEDS: Hydrochlorothiazide TAB* 25 MG PO SCH (09:45)
[2017-11-30] MEDS: Nicotine PATCH 14 MG/24 HR* PATCH TRANSDERM SCH (09:46)
[2017-11-30] MEDS: Morphine ORAL.SOLN 10 mg* 2 MG/ML UDC 5 ml PO PRN (10:08)
--- NOTE | 2017-11-30 10:15 | PN ---
Hospitalist Progress Note Date of Service: 11/30/17 . HOSPITALIST DISCHARGE NOTE: See dc instructions and summary by me. Patient stable for dc dc instructions reviewed with the patient at the bedside. DC patient home today.
[2017-11-30] MEDS: LORazepam INJ* 2 MG/ML 1 ML VIAL IV PUSH SCH (14:21)
[2017-11-30] MEDS ORDERED: NS 0.9% 1000 ML* 1,000 ML IV ONE (14:36)
[2017-11-30 16:13] VITALS: BP 115/71
[2017-12-01] MEDS: Albuterol HFA INHALER* 8 gm MDI INH SCH (07:40)
== END 2017-11-30 18:50 | disposition home or self-care (01) | DRG 434 ==
LOC: ED 08:39 → MED 11:51
PROVIDERS: ADMIT Internal Medicine; ATTEND Internal Medicine
DX: K70.10 Alcoholic hepatitis without ascites (principal); F10.20 Alcohol dependence, uncomplicated; Y90.0 Blood alcohol level of less than 20 mg/100 ml; G35 Multiple sclerosis; E86.0 Dehydration; E87.6 Hypokalemia; E83.39 Other disorders of phosphorus metabolism; E83.42 Hypomagnesemia; F32.9 Major depressive disorder, single episode, unspecified; J44.9 Chronic obstructive pulmonary disease, unspecified; I10 Essential (primary) hypertension; Z88.1 Allergy status to other antibiotic agents; Z88.0 Allergy status to penicillin; Z88.8 Allergy status to other drugs, medicaments and biological substances
CPT/HCPCS: 36415; 70450; 71045; 76705; 80048; 80053; 80061; 80076; 80320; 82140; 82248; 82803; 83605; 83735; 83880; 84100; 84439; 84443; 84484; 85025; 85379; 85610; 86038; 87340; 87902; 90732; 93005; 94640; 99283; 99406; A9270-GY; G0480; J2060; J3475; J3480; J7510

== ENCOUNTER 2018-10-11 08:35 | Day surgery (SDC) | payer OTHER ==
--- NOTE | 2018-09-29 13:35 | HP ---
Amended report to enter cosigning physician. HISTORY AND PHYSICAL: DATE OF ADMISSION/SURGERY: 10/11/18 DATE OF OFFICE VISIT: 09/28/18 ATTENDING PHYSICIAN: Dr. Anguiano* (dictated by DEONDRE Weinberg). SURGEON: Dr. Anguiano. PROCEDURE: Right index DIP joint arthrodesis and right thumb CMC joint cortisone injection. CHIEF COMPLAINT: Right thumb and index finger pain. HISTORY OF PRESENT ILLNESS: Hyacinth is a 58-year-old presenting today for an H and P for her surgery with Dr. Anguiano on 10/11/18. This is a workers comp injury that occurred on 08/02/97. She has bilateral hands involved, but she has been treated for left hand by Dr. Anguiano in the past which included a CMC joint arthroplasty and de Quervain's release. She did well with that. She is now having the same symptoms on the right but is mostly bothered by her right index finger. She has a progressive deformity of the DIP joint and is in severe pain. She has also been on disability because she has been recently diagnosed with multiple sclerosis and is unable to work. PAST MEDICAL HISTORY: Multiple sclerosis, degenerative disk disease, COPD, anxiety, rheumatoid arthritis, and hepatitis C. PAST SURGICAL HISTORY: Back surgery in 2005; left knee meniscal repair in 1988 ; right wrist surgery, date unknown; left wrist surgery, date unknown. MEDICATIONS: 1. Hydrochlorothiazide 12.5 p.o. daily. 2. Morphine sulfate 15 mg p.o. every 4 hours p.r.n. 3. Tizanidine HCL 2 mg 1 capsule p.o. p.r.n. for spasm. 4. Ventolin HFA 108 two puffs p.r.n. every 4 hours. 5. Spirlactone unknown dosage ALLERGIES: PENICILLIN results in hives, COPAXONE results in increased multiple sclerosis symptoms. FAMILY HISTORY: Positive for diabetes, CAD, and hypertension. SOCIAL HISTORY: She lives at home with her . She is disabled from multiple sclerosis, so she is not working. She tries to walk daily. Her alcohol use is less than 1 drink per month. Tobacco use is 1 pack per day. She denies recreational drug use. Denies caffeine use. REVIEW OF SYSTEMS: General: Negative for fevers, chills, night sweats, unexplained weight loss or gain. No known anesthesia problems. HEENT: Positive for visual changes. Negative for headache, lightheadedness, or syncopal episodes. Integumentary is negative for abrasions, lesions or open wounds. Cardiothoracic is positive for hypertension. Negative for chest pain, palpitations or edema. Respiratory is positive for chronic cough. Negative for shortness of breath with exertion or wheezing. GI is negative for nausea, vomiting, diarrhea or constipation. is negative for nocturia, urinary frequency, urgency, history of UTIs, kidney problems. Musculoskeletal is positive for current complaint. Positive for chronic back pain. Negative for history of fractures. Neurological is positive for numbness and tingling in feet. Negative for history of seizure, stroke or poor balance. Negative for anxiety, depression. Endocrine is negative for diabetes or thyroid issues. Hematologic is negative for easy bruising, anemia, bleeding disorders, history of DVT or PE. ID is positive for hep C. Negative for history of MRSA or HIV. PHYSICAL EXAMINATION GENERAL: Well-developed, well-nourished 58-year-old female, in NAD. VITAL SIGNS: Height 65 inches, weight 137 pounds, pulse 78, BP 126/76, temp 98.2, pain 10, BMI 22.8. HEENT: Pupils equal, reactive, round to light. Extraocular movements are intact. Throat is clear. PULMONARY: Lungs have bilateral wheezing on auscultation. NECK: Supple. No palpable lymph nodes. CARDIO: Regular rate and rhythm. S1 and S2 with no murmurs, rubs, or gallops. No edema. ABDOMEN: Positive bowel sounds, soft, nontender. NEUROLOGIC: A and O x3. Cranial nerves II through XII intact. Sensation is intact to light touch. MUSCULOSKELETAL: Upper Extremities: On exam of her bilateral hands, she has well- healed incision to the base of her left thumb and her left wrist on the radial aspect. She can make a full fist on the left and extend her fingers. She has some measure of pain with full flexion of her fingers on the left. On the right, she has significant deformity of the index finger DIP joint with the flexion deformity, swelling and significant tenderness. She also has significant pain and a positive grind test at the thumb CMC joint. Positive López of the right thumb and tenderness at the right radiostyloid. STUDIES: X-rays AP, lateral and oblique, both hands show severe degenerative arthritis of the right index finger DIP joint and at the right thumb CMC joint. IMPRESSION: 1. Right thumb CMC arthritis. 2. Right de Quervain's tenosynovitis. PLAN: The patient is scheduled to undergo a right index DIP arthrodesis and right thumb CMC joint cortisone injection. The procedure as well as risks and benefits were discussed with the patient and she elected to proceed. She will return to the office in 10 days postop for followup and suture removal. The patient is planning on contacting Dr. Valle regarding medication for post operative pain management since she is on morphine for her multiple sclerosis. DEONDRE CAICEDO [id number]/CPS #: [id number] MTDD
[~2018-10-11 08:35] MED LIST: Buffered Lidocaine 1% SYRIN* 1 ML/SYRINGE INTRADERM ONE; Dexamethasone IV* 4 MG/ML 1 ML (4 MG) IV SLOW PU ONE; Famotidine IV* 10 MG/ML 2 ML (20 mg) IV ONE; HYDROcodone/ACETAMIN 5-325 MG* 1 TAB PO PRN; Lactated Ringers 1000 ML Bag* 1,000 ML IV SCH; Naloxone* 0.4 MG/ML 1 ML VIAL IV PRN; Ondansetron INJ* 2 MG/ML VIAL IV PRN; fentaNYL* 50 MCG/ML 2 ML VIAL (100 MCG VIAL) IV PRN; oxyCODONE/Acetamin 5/325 MG* TAB PO PRN
[2018-10-11] MEDS ORDERED: Clindamycin 900 MG IVPREMIX(* 900 MG/50 ML SDV IV ONE (08:47)
[2018-10-11] MEDS ORDERED: Dexamethasone IV* 4 MG/ML 1 ML (4 MG) ONE (08:47)
[2018-10-11] MEDS ORDERED: Famotidine IV* 10 MG/ML 2 ML (20 mg) ONE (08:48)
[2018-10-11] MEDS ORDERED: methylPREDNISolone ACETATE 80* 80 MG/ML 1 ML VIAL ONE (09:05)
[2018-10-11] MEDS ORDERED: Propofol* 10 MG/ML 20 ML BTL ONE ×2 (09:26→10:45)
[2018-10-11] MEDS ORDERED: fentaNYL* 50 MCG/ML 2 ML VIAL (100 MCG VIAL) ONE (09:26)
[2018-10-11] MEDS ORDERED: Lidocaine 2% PF * 5 ML VIAL ONE (09:26)
[2018-10-11] MEDS ORDERED: Midazolam* 1 MG/ML 2 ML VIAL (2 MG) ONE ×2 (09:26→10:06)
[2018-10-11] MEDS ORDERED: Lidocaine 1% INJ* 10 MG/ML 30 ML SDV ONE (09:33)
[2018-10-11] MEDS ORDERED: EPHEDrine (Pressors)* 50 MG/ML VIAL ONE (10:21)
[2018-10-11 11:22] VITALS: BP 141/74
--- NOTE | 2018-10-11 15:28 | OP ---
DATE OF OPERATION: 10/11/18 - [facility] DATE OF : 62 SURGEON: Consuelo Anguiano MD HOUSEKEEPER MANAGER: DEONDRE Sterling ANESTHESIA: Local MAC. PRE-OP DIAGNOSES: Right index finger distal interphalangeal arthritis and right thumb carpometacarpal arthritis. POST-OP DIAGNOSES: Right index finger distal interphalangeal arthritis and right thumb carpometacarpal arthritis. OPERATIVE PROCEDURE: Right thumb CMC injection, right index finger DIP fusion. ESTIMATED BLOOD LOSS: Zero. TOURNIQUET TIME: About 30 minutes. INDICATION FOR PROCEDURE: Hyacinth is a 58-year-old female who has painful arthritis at the base of her right thumb and at the DIP joint of her right index finger. She presents for injection of the right thumb CMC joint and right index finger DIP fusion. DESCRIPTION OF PROCEDURE: The patient was brought to the operating, and was given a sedation anesthetic and a local infiltration of 10 cc of 1% plain lidocaine as a digital block to the right index finger. She was also given injection of 80 mg Depo-Medrol and 2 cc of 1% plain lidocaine at the right thumb CMC joint. Skin of the right hand and forearm was prepped and draped in the usual sterile fashion. A Tourni-Cot was then placed on the right index finger. An H-shaped incision was made on the dorsal aspect of the index finger DIP joint. We dissected through the subcutaneous tissue down to the joint. Skin flaps were elevated off of the bone. The remaining articular cartilage in the subchondral bone was removed from the distal and middle phalanges. The central aspect of the medullary canal of the middle phalanx was then located and a K-wire was driven through the center of it. K-wire was then driven antegrade through the proximal aspect of the distal phalanx and out the end of the finger. The K-wire was then placed retrograde into the middle phalanx. We overdrilled the K-wire with the drill for the mini Acutrak screw, and then with the bone held in apposition, the screw was driven across the DIP joint which held it in a very nice position. The position of the screw was checked on the AP and lateral views on the C-arm and found to be satisfactory. The wound was irrigated, and the skin edges were reapproximated with 4-0 nylon suture. The wound was dressed with Xeroform, 4x4, Webril, and an Alumafoam splint. The patient tolerated the procedure well and was brought to the recovery room in good condition. [id number]/[facility] #: [id number] ANTHONY
== END 2018-10-11 11:58 | disposition home or self-care (01) ==
LOC: OREAST 08:35
PROVIDERS: ATTEND Orthopaedic Surgery
DX: M19.041 Primary osteoarthritis, right hand (principal); M18.11 Unilateral primary osteoarthritis of first carpometacarpal joint, right hand; I10 Essential (primary) hypertension; J44.9 Chronic obstructive pulmonary disease, unspecified; Z72.0 Tobacco use; G35 Multiple sclerosis; M06.9 Rheumatoid arthritis, unspecified; Z88.0 Allergy status to penicillin
CPT/HCPCS: 76000; 88304; 88311; C1713; C1776; J1040; J1100; J2250; J2704; J3010